=== PATIENT | female | born 1950 | race African-American/Black ===

== ENCOUNTER 2018-07-23 11:14 | Outpatient (CLI) | payer OTHER ==
[~2018-07-23 11:14] MED LIST: AMLODIPINE BESY10 MG PO; CARVEDILOL25 MG PO; CITRATE OF MAG300 ML PO; DIABETA5 MG NGT; FOLIC ACID1 MG PO; FUROSEMIDE40 MG PO; HYDRALAZINE HCL25 MG PO; ISOCHRON40 MG PO; LANOXIN0.25 MG PO; LASIX40 MG; LOSARTAN POTASS50 MG; SIMVASTATIN40 MG PO; TRAMADOL HCL-1 UDTAB PO
== END 2018-07-23 11:29 | disposition home or self-care (01) ==
LOC: LAB 11:14
DX: E03.8 Other specified hypothyroidism (principal); E11.21 Type 2 diabetes mellitus with diabetic nephropathy; N39.0 Urinary tract infection, site not specified; E78.2 Mixed hyperlipidemia; D64.89 Other specified anemias; I50.41 Acute combined systolic (congestive) and diastolic (congestive) heart failure; R82.79 Other abnormal findings on microbiological examination of urine